=== PATIENT | female | born 1995 | race African-American/Black ===

== ENCOUNTER 2025-04-21 23:00 | Emergency (ER) | payer OTHER ==
[~2025-04-21] VITALS: Ht 175.3 cm; Wt 113.0 kg
[2025-04-21 23:07] VITALS: BP 131/104; PULSE 81; RESP 20; TEMP 97.3; O2SAT 99
[2025-04-21] MEDS: ONDANSETRON 4 MG TABLET PO ONE (23:37)
[2025-04-21] MEDS: FAMOTIDINE 20 MG TABLET PO ONE (23:38)
== END 2025-04-22 00:54 | disposition home or self-care (01) ==
LOC: EMS 04-22
DX: F41.0 Panic disorder [episodic paroxysmal anxiety] (principal); F41.9 Anxiety disorder, unspecified; F14.90 Cocaine use, unspecified, uncomplicated; F17.210 Nicotine dependence, cigarettes, uncomplicated; Z90.49 Acquired absence of other specified parts of digestive tract
CPT/HCPCS: 99283; Q0162